=== PATIENT | male | born 1985 | race Caucasian/White ===

== ENCOUNTER 2018-09-14 10:35 | Emergency (ER) | payer BC ==
--- NOTE | 2018-09-14 11:04 | ED ---
HPI Chest Pain - HPI Summary HPI Summary: A 33 y/o male presents to [facility] with a chief complaint of two intermittent episodes of mid-sternal chest pain lasting for about 15 minutes the morning of 09/14/18. He claims that his first episode was while he was at work sitting down on his computer and his second episode was driving to the ED. He also c/o back pain. He claims that nothing aggravated his pain, but leaning forward alleviated his pain. He denies SOB, N/V or dizziness. He denies any CP currently , rates his pain as a 0/10, but he does claim that his chest currently feels tight. He is a former smoker and has a FHx of HTN due to his father. - History of Current Complaint Chief Complaint: EDChestWallPain Time Seen by Provider: 09/14/18 10:49 Onset/Duration: Started Minutes Ago, Still Present Timing: Intermittent, Lasting Minutes Initial Severity: Moderate Current Severity: Mild Pain Intensity: 0 Pain Scale Used: 0-10 Numeric Chest Pain Location: Mid Sternal Chest Pain Radiates: Yes Chest Pain Radiates To:: Back Character: Sharp/Stabbing Aggravating Factor(s): Nothing Alleviating Factor(s): Position - leaning forward Associated Signs and Symptoms: Positive: Back Pain. Negative: Dizziness, Shortness of Breath, Nausea, Vomiting - Allergy/Home Medications Allergies/Adverse Reactions: Allergies Allergy/AdvReac Type Severity Reaction Status Date / Time No Known Allergies Allergy Verified 09/14/18 12:14 Home Medications: Home Medications NK [No Home Medications Reported] 09/14/18 [History Confirmed 09/14/18] PMH/Surg Hx/FS Hx/Imm Hx Endocrine/Hematology History: Denies: Hx Diabetes Cardiovascular History: Denies: Hx Atrial Fibrillation - Surgical History Surgery Procedure, Year, and Place: TONSILECTOMY. SEPTOPLASTY Infectious Disease History: No Infectious Disease History: Denies: Traveled Outside the [place] in Last 30 Days - Family History Known Family History: Positive: Hypertension - father - Social History Alcohol Use: Occasionally Substance Use Type: Reports: None Hx Tobacco Use: Yes Smoking Status (MU): Former Smoker Review of Systems Negative: Fever Positive: Chest Pain Negative: Shortness Of Breath Negative: Vomiting, Nausea Positive: Myalgia - back pain Neurological: Negative - dizziness All Other Systems Reviewed And Are Negative: Yes Physical Exam - Summary Physical Exam Summary: Appearance: The patient is well-nourished in no acute distress and in no acute pain. Skin: The skin is warm and dry and skin color reflects adequate perfusion. HEENT: The head is normocephalic and atraumatic. The pupils are equal and reactive. The conjunctivae are clear and without drainage. Nares are patent and without drainage. Mouth reveals moist mucous membranes and the throat is without erythema and exudate. The external ears are intact. The ear canals are patent and without drainage. The tympanic membranes are intact. Neck: The neck is supple with full range of motion and non-tender. There are no carotid bruits. There is no neck vein distension. Respiratory: Chest is non-tender. Lungs are clear to auscultation and breath sounds are symmetrical and equal. Cardiovascular: Heart is regular rate and rhythm. There is no murmur or rub auscultated. There is no peripheral edema and pulses are symmetrical and equal. Abdomen: The abdomen is soft and non-tender. There are normal bowel sounds heard in all four quadrants and there is no organomegaly palpated. Musculoskeletal: There is no back tenderness noted. Extremities are non-tender with full range of motion. There is good capillary refill. There is no peripheral edema or calf tenderness elicited. Neurological: Patient is alert and oriented to person, place and time. The patient has symmetrical motor strength in all four extremities. Cranial nerves are grossly intact. Deep tendon reflexes are symmetrical and equal in all four extremities. Psychiatric: The patient has an appropriate affect and does not exhibit any anxiety or depression. Triage Information Reviewed: Yes Vital Signs On Initial Exam: Initial Vitals Temp Pulse Resp BP Pulse Ox 98.5 F 74 18 152/94 100 09/14/18 10:42 09/14/18 10:42 09/14/18 10:42 09/14/18 10:42 09/14/18 10:42 Vital Signs Reviewed: Yes Diagnostics - Vital Signs Vital Signs Temp Pulse Resp BP Pulse Ox 09/14/18 10:42 98.5 F 74 18 152/94 100 - Laboratory Result Diagrams: 09/14/18 11:07 09/14/18 11:07 Lab Statement: Any lab studies that have been ordered have been reviewed, and results considered in the medical decision making process. - Radiology CXR Radiology Interpretation Completed By: Radiologist Summary of Radiographic Findings: NO ACTIVE CARDIOPULMONARY DISEASE. ED provider has reviewed this imaging report. - EKG 10:51 Cardiac Rate: NL - 72 bpm EKG Rhythm: Sinus Rhythm ST Segment: Normal Ectopy: None Summary of EKG Findings: Normal sinus rhythm at 72 bpm, normal ST, no ectopy, no STEMI Re-Evaluation - Re-Evaluation First Eval Re-Evaluation Time: 12:23 Change: Improved Comment: Patient reports that he is pain free. Second Eval Re-Evaluation Time: 14:47 Change: Improved Comment: Patient is ready for discharge. Chest Pain Course/Dx - Course Course Of Treatment: Mr. Godwin presented to the emergency department with an atypical chest pain into the back. It was resolving by the time he got to the emergency department and he was nontoxic in appearance with stable vital signs. He was kept on the monitor here while an EKG and labs were obtained as well as chest x-ray. These were all normal including a delayed troponin and a d- dimer. I don't think anything dangerous is happening and the likelihood of a dissection is very low given that his pain has improved completely on its own and his workup was negative so far. I recommended follow-up with his PCP. - Diagnoses Provider Diagnoses: Chest pain Discharge - Sign-Out/Discharge Documenting (check all that apply): Patient Departure - DC - Discharge Plan Condition: Stable Disposition: HOME Referrals: Aydin Ferris MD [Primary Care Provider] - (2-3 days) Additional Instructions: Return to the ED if you experience any new or worsening symptoms. - Billing Disposition and Condition Condition: STABLE Disposition: Home - Attestation Statements Document Initiated by Mynor: Yes Documenting Scribe: Edy Oglesby Provider For Whom Mynor is Documenting (Include Credential): Kei Castro MD Scribe Attestation: I, Edy Oglesby, scribed for Kei Castro MD on 09/14/18 at 1453. Scribe Documentation Reviewed: Yes Provider Attestation: The documentation as recorded by the Edy owen accurately reflects the service I personally performed and the decisions made by me, Kei Castro MD Status of Scribe Document: Viewed
[2018-09-14 11:14] LABS: ABS Basophils 0 10^3/ul (0-0.2); ABS Eosinophils 0.1 10^3/ul (0-0.6); ABS Lymphocytes 2.3 10^3/ul (1.0-4.8); ABS Monocytes 0.4 10^3/ul (0-0.8); ABS Neutrophils 1.8 10^3/ul (1.5-7.7); ABS Nucleated RBC 0 10^3/ul; Eosinophil % 1.7 %; Hematocrit 49 % (42-52); Lymphocyte % 49.4 %; Mean Corpuscular HGB Conc 35 g/dl (31-36); Mean Corpuscular Hemoglobin 30 pg (27-31); Mean Corpuscular Volume 86 fL (80-94); Mean Platelet Volume 8.6 fL (7.4-10.4); Nucleated Red Blood Cells % 0.1; Platelet Count 203 10^3/ul (150-450); Red Blood Count 5.69 10^6/ul (4.00-5.40); Red Cell Distribution Width 13 % (10.5-15); White Blood Count 4.7 10^3/ul (3.5-10.8)
[2018-09-14 11:31] LABS: Albumin 4.3 g/dL (3.2-5.2); Albumin/Globulin Ratio 1.4 (1-3); BUN/Creatinine Ratio 12.7 (8-20); Calcium 9.8 mg/dL (8.6-10.3); EGFR Non-African American 114.4 (>60); Potassium 3.9 mmol/L (3.5-5.0); Total Bilirubin 0.8 mg/dL (0.2-1.0); Total Protein 7.3 g/dL (6.4-8.9)
[2018-09-14 14:54] VITALS: BP 140/85
== END 2018-09-14 14:54 | disposition home or self-care (01) ==
LOC: ED 10:35
DX: R07.89 Other chest pain (principal); M54.9 Dorsalgia, unspecified; Z87.891 Personal history of nicotine dependence
CPT/HCPCS: 36415; 71046; 80053; 83605; 84484; 85025; 85379; 93005; 99282

== ENCOUNTER 2018-11-27 16:53 | Emergency (ER) | payer BC ==
[2018-11-27 17:25] VITALS: BP 156/94
--- NOTE | 2018-11-27 17:39 | UC ---
Abdominal Pain Male HPI - HPI Summary HPI Summary: 33-year-old male comes in with a chief complaint of intermittent right upper quadrant abdominal pain. Started last evening. The pain lasts for couple of seconds and goes away. Its moderate when he has the pain. Sometimes it radiates to his right flank shoulder blade area. No fevers or chills. He has been able eat and drink. Eating and drinking does not seem to make it worse or better. He has had smaller amounts of stool recently. Does wonder if he might be constipated. No lower abdominal pain. No vomiting. No prior abdominal surgeries. Normal urination. - History of Current Complaint Chief Complaint: UCAbdominalPain Stated Complaint: ABD PAIN Time Seen by Provider: 11/27/18 17:09 Pain Intensity: 8 - Allergies/Home Medications Allergies/Adverse Reactions: Allergies Allergy/AdvReac Type Severity Reaction Status Date / Time No Known Allergies Allergy Verified 11/27/18 17:20 PMH/Surg Hx/FS Hx/Imm Hx Previously Healthy: Yes - Surgical History Surgical History: Yes Surgery Procedure, Year, and Place: TONSILLECTOMY. SEPTOPLASTY. LEFT MENISCUS REPAIR - Family History Known Family History: Positive: Hypertension - father - Social History Alcohol Use: Occasionally Substance Use Type: None Smoking Status (MU): Former Smoker Review of Systems All Other Systems Reviewed And Are Negative: Yes Constitutional: Positive: Negative Skin: Positive: Negative Eyes: Positive: Negative ENT: Positive: Negative Respiratory: Positive: Negative Cardiovascular: Positive: Negative Gastrointestinal: Positive: Abdominal Pain Genitourinary: Positive: Negative. Negative: Dysuria, Hematuria, Frequency, Urgency Motor: Positive: Negative Neurovascular: Positive: Negative Musculoskeletal: Positive: Negative Neurological: Positive: Negative Psychological: Positive: Negative Is Patient Immunocompromised?: No Physical Exam Triage Information Reviewed: Yes Appearance: Well-Appearing, No Pain Distress, Well-Nourished Vital Signs: Initial Vital Signs Temp 97.9 F 11/27/18 17:13 Pulse 99 11/27/18 17:13 Resp 16 11/27/18 17:13 BP 156/94 11/27/18 17:13 Pulse Ox 95 11/27/18 17:13 Vital Signs Reviewed: Yes Eye Exam: Normal Eyes: Positive: Conjunctiva Clear Neck exam: Normal Neck: Positive: Supple Respiratory: Positive: Lungs clear, Normal breath sounds, No respiratory distress Cardiovascular: Positive: RRR Abdomen Description: Positive: Nontender, Soft. Negative: CVA Tenderness (R), CVA Tenderness (L), Distended, Guarding Bowel Sounds: Positive: Present Musculoskeletal Exam: Normal Musculoskeletal: Positive: Strength Intact, ROM Intact Neurological Exam: Normal Neurological: Positive: Alert, Muscle Tone Normal Psychological Exam: Normal Psychological: Positive: Age Appropriate Behavior Skin Exam: Normal Abd Pain Male Course/Dx - Course Course Of Treatment: Patient Name: FISH SHANNON Medical Record#: [id number] Ordering Physician: Travis Kramer MD Acct.#: [id number] : 1985 Age: 33 Sex: M Location: [facility] Exam Date: 11/27/18 173 ADM Status: REG ER Order Information: CT ABD/PEL W/O Accession Number: [id number] CPT: 52666 CLINICAL HISTORY: RUQ PAIN COMPARISON: None relevant available at the time of dictation. TECHNIQUE: Multiple contiguous axial CT scans were obtained of the abdomen and pelvis, without intravenous contrast enhancement. Coronal and sagittal multiplanar reformations are submitted for review. Oral contrast was not administered. FINDINGS: Evaluation is limited due to the lack of intravenous contrast. This limits evaluation of the solid organs and vasculature. LUNG BASES: The lung bases are clear. LIVER: The liver is diffusely low in attenuation compared to the spleen. There are no focal hepatic parenchymal masses. The liver measures 23 cm in long axis. BILE DUCTS: There is no intrahepatic or extrahepatic biliary dilatation. GALLBLADDER: The gallbladder is normal, without pericholecystic inflammatory change. PANCREAS: The pancreas is normal, without mass or ductal dilatation. SPLEEN: Normal in size and appearance. UPPER GI TRACT: Evaluation of the gastrointestinal tract is limited by incomplete gastric distention. The upper GI tract is unremarkable. SMALL BOWEL AND MESENTERY: The small bowel is normal in contour, course, and caliber. There is no obstruction or dilatation. COLON: The colon is normal in contour, course, caliber. There is no pericolonic inflammatory change. There is a tubular, vermiform, hollow viscus that is blind ending, and originates from the cecum, consistent with a normal appendix. There is no periappendiceal inflammatory change. This is best seen on axial images 74 through 77. ADRENALS: Normal bilaterally. KIDNEYS: The kidneys are normal in shape, size, contour, and axis. There is no hydronephrosis or nephrolithiasis. BLADDER: The bladder is smooth in contour. PELVIC ORGANS: The prostate gland is normal. The seminal vesicles are symmetric. AORTA: The aorta is normal. IVC: Unremarkable LYMPH NODES: There is no lymphadenopathy by size criteria. ABDOMINAL WALL: There is no evidence for abdominal wall hernia. BONES AND SOFT TISSUES: Unremarkable OTHER: None IMPRESSION: HEPATOMEGALY WITH FATTY INFILTRATION OF THE LIVER. <Electronically signed by Fernando Simeon MD in OV> 11/27/18 180 EXAM: US Abdomen Limited, Right Upper Quadrant EXAM DATE/TIME: 11/27/2018 6:17 PM CLINICAL HISTORY: 33 years old, male; Pain; Abdominal pain; Tenderness; Right upper quadrant (ruq); Additional info: Ruq pain TECHNIQUE: Imaging protocol: Real-time ultrasound of the abdomen with image documentation. Examination was focused on the right upper quadrant. COMPARISON: A/P WO CT ABD/PEL W/O 11/27/2018 5:54 PM FINDINGS: Liver: The liver is diffusely echogenic consistent with fatty infiltration. No intrahepatic biliary dilatation. The posterior aspect of the liver is incompletely visualized due to shadowing. Gallbladder: Unremarkable. No shadowing gallstones. No gallbladder wall thickening. Common bile duct: The common bile duct measures 0.5 cm. Pancreas: Pancreas obscured by bowel gas. Right kidney: The right kidney measures 13.5 x 5.4 cm craniocaudad and AP. No obvious mass, shadowing stones, or hydronephrosis identified. IMPRESSION: 1. No acute findings. No shadowing gallstones. 2. Hepatic steatosis. The posterior aspect of the liver is incompletely visualized due to shadowing. To contact [facility] with a general question: [facility] - [phone] For direct physician to physician contact: Physician Hotline - [phone] [facility] ([facility] Facility ID #[id number]) End of Report Content Attending Doctor: Travis Kramer ([id number]) Harpsichord Maker: Chetna Houston ([id number]) Eligibility Examiner: Ana Laura SEPULVEDA (DERICK) Report Date: 11/27/2018 17:37:00 Report Status: Final Begin of Report Content Patient Name: FISH SHANNON Medical Record#: [id number] Ordering Physician: Travis Kramer MD Acct.#: [id number] : 1985 Age: 33 Sex: M Location: [facility] Exam Date: 11/27/181736 ADM Status: REG ER Order Information: US GALL BLADDER Accession Number: [id number] CPT: 85853 EXAM: US Abdomen Limited, Right Upper Quadrant EXAM DATE/TIME: 11/27/2018 6:17 PM CLINICAL HISTORY: 33 years old, male; Pain; Abdominal pain; Tenderness; Right upper quadrant (ruq); Additional info: Ruq pain TECHNIQUE: Imaging protocol: Real-time ultrasound of the abdomen with image documentation. Examination was focused on the right upper quadrant. COMPARISON: A/P WO CT ABD/PEL W/O 11/27/2018 5:54 PM FINDINGS: Liver: The liver is diffusely echogenic consistent with fatty infiltration. No intrahepatic biliary dilatation. The posterior aspect of the liver is incompletely visualized due to shadowing. Gallbladder: Unremarkable. No shadowing gallstones. No gallbladder wall thickening. Common bile duct: The common bile duct measures 0.5 cm. Pancreas: Pancreas obscured by bowel gas. Right kidney: The right kidney measures 13.5 x 5.4 cm craniocaudad and AP. No obvious mass, shadowing stones, or hydronephrosis identified. IMPRESSION: 1. No acute findings. No shadowing gallstones. 2. Hepatic steatosis. The posterior aspect of the liver is incompletely visualized due to shadowing. To contact [facility] with a general question: [facility] - [phone] For direct physician to physician contact: Physician Hotline - [phone] [facility] ([facility] Facility ID #[id number]) <Electronically signed by Chetna Houston MD in OV> 11/27/18 [address] and ultrasound report with the patient. There is a fatty liver however there is no other findings. Was a trace of blood in the urine. At this time there is no obvious cause for the pain. The pain is intermittent. He has been able eat and drink no fevers. CBC CMP and lipase and hepatitis screen are all pending. Plan is to start a PPI and also potentially over-the- counter medications for constipation. As long as the patient completely improves he can follow-up his primary care doctor. We discussed that if anything gets worse with fevers worse pain or any other concerns she needs to go the emergency department for further evaluation and care. - Differential Dx/Clinical Impression Provider Diagnosis: Right upper quadrant abdominal pain Discharge - Sign-Out/Discharge Documenting (check all that apply): Patient Departure All imaging exams completed and their final reports reviewed: Yes - Discharge Plan Condition: Stable Disposition: HOME Prescriptions: Omeprazole 20 mg PO BID #30 capsule. Patient Education Materials: Acute Abdominal Pain (DC) Referrals: Aydin Ferris MD [Primary Care Provider] - Additional Instructions: FOLLOW UP WITH YOUR DOCTOR IF NOT COMPLETELY IMPROVED. GO TO THE EMERGENCY DEPARTMENT IF YOUR CONDITION WORSENS; PAIN, FEVER, YOU FEEL ILL OR ANY QUESTIONS OR CONCERNS. - Billing Disposition and Condition Condition: STABLE Disposition: Home
[2018-11-28 10:09] LABS: ABS Basophils 0 10^3/ul (0-0.2); ABS Eosinophils 0.1 10^3/ul (0-0.6); ABS Monocytes 0.7 10^3/ul (0-0.8); ABS Neutrophils 3.4 10^3/ul (1.5-7.7); ABS Nucleated RBC 0 10^3/ul; Eosinophil % 1.9 %; Hematocrit 51 % (36-46); Hemoglobin 17.5 g/dL (14.0-18.0); Lymphocyte % 41.9 %; Mean Corpuscular HGB Conc 35 g/dL (31-36); Mean Corpuscular Hemoglobin 30 pg (27-31); Mean Corpuscular Volume 87 fL (80-94); Mean Platelet Volume 9.3 fL (7.4-10.4); Nucleated Red Blood Cells % 0.2; Platelet Count 201 10^3/uL (150-450); Red Blood Count 5.83 10^6 /uL (4.18-5.48); Red Cell Distribution Width 13 % (10.5-15); White Blood Count 7.2 10^3/uL (3.5-10.8)
[2018-11-28 10:14] LABS: Albumin 4.6 g/dL (3.2-5.2); Potassium 4.1 mmol/L (3.5-5.0); Total Bilirubin 0.6 mg/dL (0.2-1.0)
[2018-11-28 10:20] LABS: Albumin/Globulin Ratio 1.8 (1-3); BUN/Creatinine Ratio 17.7 (8-20); EGFR African American 138.4 (>60); EGFR Non-African American 114.4 (>60); Globulin 2.5 g/dL (2-4); Total Protein 7.1 g/dL (6.4-8.9)
[2018-11-28 13:34] LABS: Hepatitis C Antibody Low Reactive (Nonreactive)
--- NOTE | 2018-11-29 07:11 | UC ---
- Progress Note Progress Note: labs reviewed: Hepatitis B and hepatitis A And hepatitis C antibody pending at this time He has low reactive results for hep C Await final results at this time No change in plan Course/Dx - Diagnoses Provider Diagnoses: Right upper quadrant abdominal pain Discharge - Sign-Out/Discharge Documenting (check all that apply): Post-Discharge Follow Up All imaging exams completed and their final reports reviewed: Yes - Discharge Plan Condition: Stable Disposition: HOME Prescriptions: Omeprazole 20 mg PO BID #30 capsule.dr Patient Education Materials: Acute Abdominal Pain (DC) Referrals: Aydin Ferris MD [Primary Care Provider] - Additional Instructions: FOLLOW UP WITH YOUR DOCTOR IF NOT COMPLETELY IMPROVED. GO TO THE EMERGENCY DEPARTMENT IF YOUR CONDITION WORSENS; PAIN, FEVER, YOU FEEL ILL OR ANY QUESTIONS OR CONCERNS. - Billing Disposition and Condition Condition: STABLE Disposition: Home
[2018-11-30 11:46] LABS: Hepatitis B Surface Antigen Nonreactive (Nonreactive)
--- NOTE | 2018-11-30 16:22 | UC ---
- Progress Note Progress Note: 11/30/2018 Hepatitis B S antigen: non reactive, Hep B Core IGM: non reactive. Pt w/o immunity for Hep B Hep A AB IGM: non reactive Hep C Ab, HCV index; 8.4, low reactive, results aretha indeterminate. Still pending final reports for additional reflexed testing No change Emili Muller PA-C Course/Dx - Diagnoses Provider Diagnoses: Right upper quadrant abdominal pain Discharge - Sign-Out/Discharge Documenting (check all that apply): Post-Discharge Follow Up All imaging exams completed and their final reports reviewed: Yes - Discharge Plan Condition: Stable Disposition: HOME Prescriptions: Omeprazole 20 mg PO BID #30 capsule.dr Patient Education Materials: Acute Abdominal Pain (DC) Referrals: Aydin Ferris MD [Primary Care Provider] - Additional Instructions: FOLLOW UP WITH YOUR DOCTOR IF NOT COMPLETELY IMPROVED. GO TO THE EMERGENCY DEPARTMENT IF YOUR CONDITION WORSENS; PAIN, FEVER, YOU FEEL ILL OR ANY QUESTIONS OR CONCERNS. - Billing Disposition and Condition Condition: STABLE Disposition: Home
== END 2018-11-27 19:05 | disposition home or self-care (01) ==
LOC: UCEAST 16:53
DX: R10.11 Right upper quadrant pain (principal); K76.0 Fatty (change of) liver, not elsewhere classified; Z87.891 Personal history of nicotine dependence
CPT/HCPCS: 36415; 74176; 76705; 80053; 80074; 81003; 83690; 85025; 87522; 99212; G0463

== ENCOUNTER 2018-12-02 11:45 | Emergency (ER) | payer BC ==
[2018-12-02 12:58] LABS: ABS Basophils 0.1 10^3/ul (0-0.2); ABS Eosinophils 0.1 10^3/ul (0-0.6); ABS Lymphocytes 2.6 10^3/ul (1.0-4.8); ABS Monocytes 0.6 10^3/ul (0-0.8); ABS Neutrophils 2.8 10^3/ul (1.5-7.7); ABS Nucleated RBC 0 10^3/ul; Hematocrit 49 % (36-46); Hemoglobin 17.1 g/dL (14.0-18.0); Lymphocyte % 42.3 %; Mean Corpuscular HGB Conc 35 g/dL (31-36); Mean Corpuscular Hemoglobin 30 pg (27-31); Mean Corpuscular Volume 86 fL (80-94); Mean Platelet Volume 8.7 fL (7.4-10.4); Nucleated Red Blood Cells % 0.4; Platelet Count 202 10^3/uL (150-450); Red Blood Count 5.74 10^6 /uL (4.18-5.48); Red Cell Distribution Width 13 % (10.5-15); White Blood Count 6.1 10^3/uL (3.5-10.8)
--- NOTE | 2018-12-02 13:01 | ED ---
Upper Extremity Pain - HPI Summary HPI Summary: Patient is a 33yo M presenting to the ED from with sharp shooting pain just inferior to the shoulder and running to the elbow joint. He states this is been intermittent x 2 days he endorses this as a shooting pain and not aching or stabbing. He denies any known trauma. He states he was seen in the ED approximately 1 week ago and had a blood pressure cuff which was tight but denies any other trauma. He states upon movement, the pain is shooting. Denies any numbness or tingling in the ipsilateral hand. Endorses numbness sensation directly over the posterior portion of the upper arm. Denies any erythema or warmth or ecchymosis to the arm. Denies any neck pain. Pulses +2 intact bilaterally. Patient was sent here from [facility] for probable ST elevations in the V5 and V6 leads compared with previous visit 3 months ago. EKG is in normal sinus with a rate of 69. Patient denies any CP or SOB. He was sent here for rule out ACS. Spoke with MADELIN Granados at prior to patient arrival. - History of Current Complaint Chief Complaint: EDChestPainROMI Stated Complaint: ARM PAIN , COMING FROM CC Time Seen by Provider: 12/02/18 11:46 Hx Obtained From: Patient Mechanism Of Injury: Direct Blow Onset/Duration: Started Hours Ago Timing: Constant Severity Initially: Moderate Severity Currently: Moderate Pain Location: Arm Character: Aching Aggravating Factor(s): Movement Alleviating Factor(s): Nothing Associated Signs & Symptoms: Positive: Negative Related History: Dominant Hand Right - Risk Factors Non-Orthopedic Risk Factor: Negative DVT Risk Factors: Negative Septic Arthritis Risk Factor: Negative Compartment Syndrome Risk Factors: Pain, Paresthesias - Allergies/Home Medications Allergies/Adverse Reactions: Allergies Allergy/AdvReac Type Severity Reaction Status Date / Time No Known Allergies Allergy Verified 12/02/18 09:08 PMH/Surg Hx/FS Hx/Imm Hx Previously Healthy: Yes Endocrine/Hematology History: Denies: Hx Diabetes Cardiovascular History: Denies: Hx Atrial Fibrillation, Hx Hypertension - Surgical History Surgery Procedure, Year, and Place: TONSILLECTOMY. SEPTOPLASTY. LEFT MENISCUS REPAIR - Immunization History Hx Pertussis Vaccination: No Immunizations Up to Date: Yes Infectious Disease History: No Infectious Disease History: Denies: Traveled Outside the [place] in Last 30 Days - Family History Known Family History: Positive: Hypertension - father - Social History Occupation: Employed Full-time Lives: With Family Alcohol Use: Occasionally Hx Substance Use: No Substance Use Type: Reports: None Hx Tobacco Use: Yes Smoking Status (MU): Former Smoker Review of Systems Constitutional: Negative Negative: Fever, Chills, Fatigue, Skin Diaphoresis Negative: Palpitations, Chest Pain Negative: Shortness Of Breath, Cough Genitourinary: Negative Positive: no symptoms reported, see HPI Neurological: Other - sharp shooting pain intermittent throughout the L upper posterior arm Positive: Paresthesia, Numbness Psychological: Normal All Other Systems Reviewed And Are Negative: Yes Physical Exam Triage Information Reviewed: Yes Vital Signs On Initial Exam: Initial Vitals Temp Pulse Resp BP Pulse Ox 97.9 F 72 18 151/97 96 12/02/18 11:47 12/02/18 11:47 12/02/18 11:47 12/02/18 11:47 12/02/18 11:47 Vital Signs Reviewed: Yes Appearance: Positive: Well-Appearing, Well-Nourished Skin: Positive: Warm, Skin Color Reflects Adequate Perfusion Head/Face: Positive: Normal Head/Face Inspection Eyes: Positive: EOMI, SHALA, Conjunctiva Clear Neck: Positive: Supple, No Lymphadenopathy Respiratory/Lung Sounds: Positive: Clear to Auscultation, Breath Sounds Present Cardiovascular: Positive: RRR, Pulses are Symmetrical in both Upper and Lower Extremities Musculoskeletal: Positive: Pain @ - sharp shooting pain intermittent throughout the L upper posterior arm Psychiatric: Positive: Affect/Mood Appropriate AVPU Assessment: Alert Diagnostics - Vital Signs Vital Signs Temp Pulse Resp BP Pulse Ox 12/02/18 11:47 97.9 F 72 18 151/97 96 - Laboratory Result Diagrams: 12/02/18 12:47 12/02/18 12:47 Lab Statement: Any lab studies that have been ordered have been reviewed, and results considered in the medical decision making process. Course/Dx - Course Course Of Treatment: Arrival in to the ED, EKG is obtained. EKG shows normal sinus rhythm, RSR in V1 and V2, ST elevation, probable normal early repolarization pattern. No STEMI is noted. Patient continues to deny any chest pressure. Since arrival, he denies any pain to the arm. However states when he moves it "just right" the pain is shooting. He is also endorsing some numbness over the area which is also intermittent. Labs obtained including a troponin. Patient will be given a steroid and encouraged ibuprofen for inflammation and nerve spasm relief. He is okay for discharge at this time. - Diagnoses Differential Diagnosis/HQI/PQRI: Positive: Other - Muscle strain, nerve pain Provider Diagnoses: Nerve pain Discharge - Sign-Out/Discharge Documenting (check all that apply): Patient Departure Patient Received Moderate/Deep Sedation with Procedure: No - Discharge Plan Condition: Stable Disposition: HOME Prescriptions: predniSONE TAB* [Deltasone TAB*] 50 mg PO DAILY #5 tab MDD 1 Patient Education Materials: Muscle Spasm (ED) Referrals: Aydin Ferris MD [Primary Care Provider] - Additional Instructions: Take ibuprofen 600mg three times daily Prednisone once daily x 5 days - Billing Disposition and Condition Condition: STABLE Disposition: Home
[2018-12-02 13:16] LABS: Albumin 4.4 g/dL (3.2-5.2); Albumin/Globulin Ratio 1.6 (1-3); BUN/Creatinine Ratio 17.8 (8-20); Calcium 9.8 mg/dL (8.6-10.3); EGFR African American 151.6 (>60); EGFR Non-African American 125.3 (>60); Globulin 2.8 g/dL (2-4); Total Bilirubin 0.9 mg/dL (0.2-1.0); Total Protein 7.2 g/dL (6.4-8.9); Troponin I 0.01 ng/mL (<0.04)
[2018-12-02 15:13] VITALS: BP 151/77
== END 2018-12-02 13:39 | disposition home or self-care (01) ==
LOC: ED 11:45
DX: M79.2 Neuralgia and neuritis, unspecified (principal)
CPT/HCPCS: 36415; 71046; 80053; 83605; 84484; 85025; 93005; 99282

== ENCOUNTER 2018-12-31 17:35 | Emergency (ER) | payer BC ==
--- OUTSIDE RECORDS SUMMARY | 2018-12-31 17:40 | XMS REPORT | Continuity of Care Document ---
:1985 External Reference #:[id number] Author Name Ursula Womack O.D. Address [address] [place] [address] Care Team Providers Name Role Phone Aydin Ferris M.D. Primary Care Physician Unavailable Payers Date Identification Numbers Payment Provider Subscriber Policy Number: [id number] [employer] Will Godwin PayID: [id number] [address] [place] [address] Advance Directives Description No Information Available Problems Active Problems Provider Date Essential hypertension Onset: Myopia Ursula Womack O.D. Onset: 12/08/2018 Regular astigmatism Ursula Womack O.D. 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 ETOH Use Occasionally consumes alcohol Tobacco Use Start: Unknown Patient has never smoked Smoking Status Reviewed: 12/08/18 Patient has never smoked Allergies, Adverse Reactions, Alerts Description No Known Drug Allergies Medications Active Medications SIG Qnty Indications Ordering Provider Date Lisinopril Take One Tablet Unknown 10mg Tablets By Mouth Every Day Immunizations Description No Information Available Vital Signs Description No Information Available Results Description No Information Available Procedures Description No Information Available Encounters Description No Information Available Plan of Treatment 12/08/2018 - Ursula oWmack O.D.H52.223 Regular astigmatism, bilateralComments: Astigmatism is a common vision condition that happens when a person's cornea is not symmetrical. Dr. Womack has given you a prescription to correct for this.Follow up:2 YEARS You can expect to have your eyes dilated at your next visit. If Dr. Womack orders any additional testing, it may require extra time. We recommend that you bring sunglasses, as dilation drops often make you light sensitive until they wear off. We always recommend you bring someone to drive youhome if you are uncomfortable driving with your eyes dilated. If you have any questions before your next visit, feel free to call our office at [phone].H72.13 Myopia, bilateralComments:Smoking can increase the risk of developing or worsening any eye related disease, as well as affect your overall health. If you are a smoker, we strongly recommend that you quit.If you are not a smoker, we strongly recommend that you do not start. You have Myopia, or near sightedness. I have given you a prescription for glasses.
--- OUTSIDE RECORDS SUMMARY | 2018-12-31 17:40 | XMS REPORT | Continuity of Care Document ---
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 Aydin Ferris MD Primary Care Physician Unavailable Payers Date Identification Numbers Payment Provider Subscriber Effective: 2016 Policy Number: [id number] /BS Of [employer] Group Number: [id number] [address] [address] PayID: [id number] [place] [address] Advance Directives Description No Information Available Problems Description No Information Family History Date Family Member(s) Observation Comments Father 50 Father No Current Problems Mother 50 Mother No Current Problems First Brother 23 First Brother No Current Problems First Sister 23 First Sister No Current Problems Second Sister 23 Second Sister No Current Problems Social History Type Date Description Comments Sex Unknown Marital Status . ETOH Use Currently consumes alcohol Tobacco Use Start: Unknown End: Unknown Patient is a former smoker Smoking Status Reviewed: 03/20/18 Patient is a former smoker Allergies, Adverse Reactions, Alerts Description No Known Drug Allergies Medications Active Medications SIG Qnty Indications Ordering Provider Date Lisinopril 1 by mouth 30tabs I10 Aydin Poole 12/03/2018 10mg Tablets every day MD [place] Prednisone take one by Unknown 50mg Tablets mouth daily for 5 days History Medications No Active Medications Unknown 03/20/2018 - 12/03/2018 Immunizations Description No Information Available Vital Signs Date Vital Result Comment 12/03/2018 3:35pm BP Systolic 158 mmHg BP Diastolic 88 mmHg Heart Rate 80 /min Body Temperature 98.8 F Respiratory Rate 18 /min Height 79 inches 6'7" Weight 341.00 lb BMI (Body Mass Index) 38.4 kg/m2 07/16/2018 3:27pm BP Systolic 140 mmHg BP Diastolic 84 mmHg Heart Rate 68 /min Body Temperature 98.1 F Respiratory Rate 18 /min Weight 348.00 lb 03/20/2018 10:27am BP Systolic 122 mmHg BP Diastolic 84 mmHg Heart Rate 64 /min Body Temperature 97.3 F Respiratory Rate 16 /min Height 79 inches 6'7" Weight 332.00 lb BMI (Body Mass Index) 37.4 kg/m2 Results Test Date Facility Test Result H/L Range Note Laboratory test finding 12/02/2018 [facility] Lactic Acid 0.7 mmol/L N 0.5-2.0 1 Troponin I 0.01 ng/mL <0.04 2 Comp Metabolic Panel 12/02/2018 [facility] Sodium 137 mmol/L N 135-145 Potassium 4.0 mmol/L N 3.5-5.0 Chloride 106 mmol/L N 101-111 Co2 Carbon Dioxide 24 mmol/L N 22-32 Anion Gap 7 mmol/L N 2-11 Glucose 91 mg/dL N 70-100 Blood Urea Nitrogen 13 mg/dL N 6-24 Creatinine 0.73 mg/dL N 0.67-1.17 BUN/Creatinine Ratio 17.8 N 8-20 Calcium 9.8 mg/dL N 8.6-10.3 Total Protein 7.2 g/dL N 6.4-8.9 Albumin 4.4 g/dL N 3.2-5.2 Globulin 2.8 g/dL N 2-4 Albumin/Globulin Ratio 1.6 N 1-3 Total Bilirubin 0.90 mg/dL N 0.2-1.0 Alkaline Phosphatase 46 U/L N 34-104 Alt 50 U/L N 7-52 Ast 30 U/L N 13-39 Egfr Non- 125.3 >60 Egfr 151.6 >60 3 CBC Auto Diff 12/02/2018 [facility] White Blood Count 6.1 10^3/uL N 3.5-10.8 Red Blood Count 5.74 10^6/uL High 4.18-5.48 Hemoglobin 17.1 g/dL N 14.0-18.0 Hematocrit 49 % High 36-46 Mean Corpuscular Volume 86 fL N 80-94 Mean Corpuscular Hemoglobin 30 pg N 27-31 Mean Corpuscular HGB Conc 35 g/dL N 31-36 Red Cell Distribution Width 13 % N 10.5-15 Platelet Count 202 10^3/uL N 150-450 Mean Platelet Volume 8.7 fL N 7.4-10.4 Abs Neutrophils 2.8 10^3/uL N 1.5-7.7 Abs Lymphocytes 2.6 10^3/uL N 1.0-4.8 Abs Monocytes 0.6 10^3/uL N 0-0.8 Abs Eosinophils 0.1 10^3/uL N 0-0.6 Abs Basophils 0.1 10^3/uL N 0-0.2 Abs Nucleated RBC 0 10^3/uL Granulocyte % 45.6 % Lymphocyte % 42.3 % Monocyte % 9.1 % Eosinophil % 2.0 % Basophil % 1.0 % Nucleated Red Blood Cells % 0.4 CBC Auto Diff 11/27/2018 [facility] White Blood Count 7.2 10^3/uL N 3.5-10.8 Red Blood Count 5.83 10^6/uL High 4.18-5.48 Hemoglobin 17.5 g/dL N 14.0-18.0 Hematocrit 51 % High 36-46 Mean Corpuscular Volume 87 fL N 80-94 Mean Corpuscular Hemoglobin 30 pg N 27-31 Mean Corpuscular HGB Conc 35 g/dL N 31-36 Red Cell Distribution Width 13 % N 10.5-15 Platelet Count 201 10^3/uL N 150-450 Mean Platelet Volume 9.3 fL N 7.4-10.4 Abs Neutrophils 3.4 10^3/uL N 1.5-7.7 Abs Lymphocytes 3.0 10^3/uL N 1.0-4.8 Abs Monocytes 0.7 10^3/uL N 0-0.8 Abs Eosinophils 0.1 10^3/uL N 0-0.6 Abs Basophils 0 10^3/uL N 0-0.2 Abs Nucleated RBC 0 10^3/uL Granulocyte % 46.6 % Lymphocyte % 41.9 % Monocyte % 9.1 % Eosinophil % 1.9 % Basophil % 0.5 % Nucleated Red Blood Cells % 0.2 Comp Metabolic Panel 11/27/2018 [facility] Sodium 139 mmol/L N 135-145 Potassium 4.1 mmol/L N 3.5-5.0 Chloride 106 mmol/L N 101-111 Co2 Carbon Dioxide 24 mmol/L N 22-32 Anion Gap 9 mmol/L N 2-11 Calcium 10.0 mg/dL N 8.6-10.3 Albumin 4.6 g/dL N 3.2-5.2 Total Bilirubin 0.60 mg/dL N 0.2-1.0 Glucose 84 mg/dL N 70-100 Blood Urea Nitrogen 14 mg/dL N 6-24 Creatinine 0.79 mg/dL N 0.67-1.17 BUN/Creatinine Ratio 17.7 N 8-20 Total Protein 7.1 g/dL N 6.4-8.9 Globulin 2.5 g/dL N 2-4 Albumin/Globulin Ratio 1.8 N 1-3 Alkaline Phosphatase 51 U/L N 34-104 Alt 57 U/L High 7-52 Ast 32 U/L N 13-39 Egfr Non- 114.4 >60 Egfr 138.4 >60 4 Laboratory test finding 11/27/2018 [facility] Lipase 19 U/L N 11.0-82.0 5 Hepatitis Acute Panel 11/27/2018 [facility] HCV Index 8.4 Index Hepatitis C Antibody Low Reactive Abnormal Nonreactive 6 Hepatitis B Surface Antigen Nonreactive Nonreactive Hepatitis B Core IgM Nonreactive Nonreactive Hepatitis A AB IgM Nonreactive Nonreactive Laboratory test 11/27/2018 [facility] Hepatitis C Rna Undetected IU/mL Undetected 7 finding Quant Poc Urinalysis 11/27/2018 [facility] Poc Glucose, Urine Negative Negative Poc Bilirubin, Urine Negative Negative Poc Ketone, Urine Negative Negative Poc Specific [place], Urine >=1.030 N 1.010-1.030 Poc Blood, Urine Trace-lysed Abnormal Negative Poc pH, Urine 5.5 N 5-9 Poc Protein, Urine 2+ Abnormal Negative Poc Urobilinogen, Urine 0.2 Negative Poc Nitrite, Urine Negative Negative Poc Leukocytes, Urine Negative Negative Poc Color, Urine Dark yellow Poc Clarity, Urine Clear 8 Laboratory test finding 09/14/2018 [facility] Troponin I 0.00 ng/mL <0.04 9 D Dimer Quantitative < 200 ng/mL N Less Than 230 10 Comp Metabolic Panel 09/14/2018 [facility] Sodium 136 mmol/L N 135-145 Potassium 3.9 mmol/L N 3.5-5.0 Chloride 106 mmol/L N 101-111 Co2 Carbon Dioxide 23 mmol/L N 22-32 Anion Gap 7 mmol/L N 2-11 Glucose 101 mg/dL High 70-100 Blood Urea Nitrogen 10 mg/dL N 6-24 Creatinine 0.79 mg/dL N 0.67-1.17 BUN/Creatinine Ratio 12.7 N 8-20 Calcium 9.8 mg/dL N 8.6-10.3 Total Protein 7.3 g/dL N 6.4-8.9 Albumin 4.3 g/dL N 3.2-5.2 Globulin 3.0 g/dL N 2-4 Albumin/Globulin Ratio 1.4 N 1-3 Total Bilirubin 0.80 mg/dL N 0.2-1.0 Alkaline Phosphatase 46 U/L N 34-104 Alt 54 U/L High 7-52 Ast 33 U/L N 13-39 Egfr Non- 114.4 >60 Egfr 138.4 >60 11 Laboratory test finding 09/14/2018 [facility] Lactic Acid 0.8 mmol/L N 0.5-2.0 12 CBC Auto Diff 09/14/2018 [facility] White Blood Count 4.7 10^3/uL N 3.5-10.8 Red Blood Count 5.69 10^6/uL High 4.00-5.40 Hemoglobin 17.0 g/dL N 14.0-18.0 Hematocrit 49 % N 42-52 Mean Corpuscular Volume 86 fL N 80-94 Mean Corpuscular Hemoglobin 30 pg N 27-31 Mean Corpuscular HGB Conc 35 g/dL N 31-36 Red Cell Distribution Width 13 % N 10.5-15 Platelet Count 203 10^3/uL N 150-450 Mean Platelet Volume 8.6 fL N 7.4-10.4 Abs Neutrophils 1.8 10^3/uL N 1.5-7.7 Abs Lymphocytes 2.3 10^3/uL N 1.0-4.8 Abs Monocytes 0.4 10^3/uL N 0-0.8 Abs Eosinophils 0.1 10^3/uL N 0-0.6 Abs Basophils 0 10^3/uL N 0-0.2 Abs Nucleated RBC 0 10^3/uL Granulocyte % 38.9 % Lymphocyte % 49.4 % Monocyte % 9.1 % Eosinophil % 1.7 % Basophil % 0.9 % Nucleated Red Blood Cells % 0.1 Laboratory test finding 09/14/2018 [facility] Troponin I 0.00 ng/mL <0.04 13 Comprehensive Metabolic 03/30/2018 [facility] Sodium 139 mEq/L 134- 149 Prof Potassium 4.3 mEq/L 3.6-5.5 Chloride 109 mEq/L 94-112 Carbon Dioxide 21 mEq/L 21-32 Glucose 96 mg/dL 70-105 BUN 12 mg/dL 6-26 Creatinine 0.9 mg/dL 0.6-1.4 BUN/Creat Ratio 13.3 CALC 8.0-36.0 Calcium 9.5 mg/dL 8.6-10.2 Total Protein 7.0 g/dL 6.4-8.3 Albumin 4.4 g/dL 3.8-5.5 Globulin 2.6 g/dL 2.0-4.8 A/G Ratio 1.7 CALC 0.6-2.3 Alk. Phosphatase 42 U/L 22-95 Alt (SGPT) 44 U/L High 7-35 Ast (Sgot) 24 U/L 5-34 Total Bilirubin 0.7 mg/dL 0.2-1.3 GFR Non- >60 ml/min/1.73m^ >=60 GFR >60 ml/min/1.73m^ >=60 Lipid Profile 03/30/2018 [facility] Cholesterol 125 mg/dL 120-200 Triglycerides 86 mg/dL 30-200 HDL Cholesterol 39 mg/dL 30-70 LDL (Calculated) 69 CALC 0-129 VLDL Cholesterol 17 mg/dL 0-50 HDL Risk Factor 3.2 CALC 0.0-4.4 CBC Electronic Fma 03/30/2018 [facility] WBC 7.5 x10^3/UL 4.0-10.0 RBC 5.62 x10^6/UL 3.93-6.00 HGB 16.7 g/dL 12.0-17.0 HCT 46 % 35-50 MCV 82.6 fL 80.0-95.0 MCH 29.7 pg 25.6-32.2 MCHC 36.0 g/dL 32.2-36.0 RDW-CV 12.4 % 11.6-14.4 PLT 198 x10^3/UL 163-400 MPV 10.1 fL 9.4-12.4 Zane# 3.63 x10^3/UL 1.56-6.13 Lymph# 2.82 x10^3/UL 1.18-3.74 [place]# 0.79 x10^3/UL 0.24-0.82 Eos # 0.3 x10^3/UL 0.0-0.5 Baso # 0.03 x10^3/UL 0.01-0.08 Zane% 48.2 % 34.0-70.0 Lymph % 37.5 % 20.0-52.0 [place]% 10.5 % 5.0-12.0 Eos% 3.3 % 0.7-7.0 Baso% 0.4 % 0.1-1.2 1 [facility] Severe Sepsis and Septic Shock Management Bundle Measure requires all lactic acids initially measuring >2.0 mmol/L be repeated. 2 Troponin-I testing on Plasma Separator Tubes (PST) has a known false positive rate of 0.20-0.40%. All positive troponins reflex immediate secondary confirmatory testing. 3 Because ethnic data is not always readily available, this report includes an eGFR for both -Americans and non- Americans. The National Kidney Disease Education Program (NKDEP) does not endorse the use of the MDRD equation for patients that are not between the ages of 18 and 70, are , have extremes of body size, muscle mass, or nutritional status, or are non- or non-. According to the National Kidney Foundation, irrespective of diagnosis, the stage of the disease is based on the level of kidney function: Stage Description GFR(mL/min/1.73 m(2)) 1 Kidney damage with normal or decreased GFR 90 2 Kidney damage with mild decrease in GFR 60-89 3 Moderate decrease in GFR 30-59 4 Severe decrease in GFR 15-29 5 Kidney failure <15 (or dialysis) 4 Because ethnic data is not always readily available, this report includes an eGFR for both -Americans and non- Americans. The National Kidney Disease Education Program (NKDEP) does not endorse the use of the MDRD equation for patients that are not between the ages of 18 and 70, are , have extremes of body size, muscle mass, or nutritional status, or are non- or non-. According to the National Kidney Foundation, irrespective of diagnosis, the stage of the disease is based on the level of kidney function: Stage Description GFR(mL/min/1.73 m(2)) 1 Kidney damage with normal or decreased GFR 90 2 Kidney damage with mild decrease in GFR 60-89 3 Moderate decrease in GFR 30-59 4 Severe decrease in GFR 15-29 5 Kidney failure <15 (or dialysis) 5 [id number] Low reactive results are indeterminate. This sample has been reflexed for additional testing. 7 Result in log IU/mL is Undetected. ADDITIONAL INFORMATION The quantification range of this assay is 15 to 100,000,000 IU/mL (1.18 log to 8.00 log IU/mL). Testing was performed using the stone HCV test ([employer] with the stone [employer]0 System. Test Performed by: [facility] [place] [address] [place] [address] 8 Pattern Grader Cutter: [id number] 9 Troponin-I testing on Plasma Separator Tubes (PST) has a known false positive rate of 0.20-0.40%. All positive troponins reflex immediate secondary confirmatory testing. 10 Please note: The following may produce a false positive D Dimer test: - Rheumatoid factor greater than 60 IU/ml - Plasma hemoglobin greater than 0.05 gm/dl - Bilirubin greater than 50 mg/dl - Lipids greater than 1000 mg/dl - FDP greater than 20 ug/ml 11 Because ethnic data is not always readily available, this report includes an eGFR for both -Americans and non- Americans. The National Kidney Disease Education Program (NKDEP) does not endorse the use of the MDRD equation for patients that are not between the ages of 18 and 70, are , have extremes of body size, muscle mass, or nutritional status, or are non- or non-. According to the National Kidney Foundation, irrespective of diagnosis, the stage of the disease is based on the level of kidney function: Stage Description GFR(mL/min/1.73 m(2)) 1 Kidney damage with normal or decreased GFR 90 2 Kidney damage with mild decrease in GFR 60-89 3 Moderate decrease in GFR 30-59 4 Severe decrease in GFR 15-29 5 Kidney failure <15 (or dialysis) 12 [facility] Severe Sepsis and Septic Shock Management Bundle Measure requires all lactic acids initially measuring >2.0 mmol/L be repeated. 13 Troponin-I testing on Plasma Separator Tubes (PST) has a known false positive rate of 0.20-0.40%. All positive troponins reflex immediate secondary confirmatory testing. Procedures Description No Information Available Encounters Type Date Location Provider Dx Diagnosis Office Visit 07/16/2018 Main Office Aydin Poole M25.511 Pain in right 3:10p MD [place] shoulder Office Visit 03/20/2018 Main Office Aydin Poole Z00.00 Encntr for general 10:10a MD [place] adult medical exam w/o abnormal findings Plan of Treatment 12/03/2018 - Aydin Ferris [id number] Essential (primary) hypertensionNew Medication:Lisinopril 10 mg - 1 by mouth every dayR07.89 Other chest painAllComments:Medication Management Patient Understands medications he's taking? Yes No Are there Barriersto Adherence? Yes No Has the patient been asked about herbal supplements and therapies, and OTC meds? Yes No
--- NOTE | 2018-12-31 18:08 | UC ---
FLU HPI - HPI Summary HPI Summary: Patient started experiencing flulike symptoms today with headache, body aches, mild fever and chills. It is notable that he did have a tick embedded in the left chest area 2 weeks ago however he thinks it was only on for several hours and he removed it without difficulty. - History of Current Complaint Chief Complaint: UCHeadathompson Stated Complaint: TICK BITE Time Seen by Provider: 12/31/18 17:47 Hx Obtained From: Patient Onset/Duration: Gradual Onset Severity Currently: Mild Severity Initially: Mild Pain Intensity: 5 Associated Signs & Symptoms: Positive: Fever - Patient had a tick embedded 2 weeks ago on his left chest which she removed easily and had only been on for a few hours., Myalgia, Headache - Allergy/Home Medications Allergies/Adverse Reactions: Allergies Allergy/AdvReac Type Severity Reaction Status Date / Time No Known Allergies Allergy Verified 12/31/18 17:53 Home Medications: Home Medications Lisinopril TAB* [Prinivil TAB 10 MG*] 10 mg PO DAILY 12/31/18 [History Confirmed 12/31/18] PMH/Surg Hx/FS Hx/Imm Hx Previously Healthy: Yes - Surgical History Surgical History: Yes Surgery Procedure, Year, and Place: TONSILLECTOMY. SEPTOPLASTY. LEFT MENISCUS REPAIR - Family History Known Family History: Positive: Hypertension - father - Social History Alcohol Use: Occasionally Substance Use Type: None Smoking Status (MU): Former Smoker Review of Systems All Other Systems Reviewed And Are Negative: Yes Skin: Positive: Other - Patient removed a tick from his left upper chest 2 weeks ago. It was not engorged and it was only on for a few hours. ENT: Positive: Nasal Discharge - States he always has some nasal congestion. Motor: Positive: Negative Neurovascular: Positive: Negative Musculoskeletal: Positive: Myalgia Neurological: Positive: Headache - Mild headache. Psychological: Positive: Negative Is Patient Immunocompromised?: No Physical Exam Triage Information Reviewed: Yes Appearance: Well-Appearing, No Pain Distress, Well-Nourished Vital Signs: Initial Vital Signs Temp 99.1 F 12/31/18 17:47 Pulse 102 12/31/18 17:47 Resp 18 12/31/18 17:47 Pulse Ox 99 12/31/18 17:47 Vital Signs Reviewed: Yes Eyes: Positive: Conjunctiva Clear ENT: Positive: Hearing grossly normal, Pharynx normal, TMs normal, Uvula midline Neck exam: Normal Neck: Positive: Supple, Nontender, No Lymphadenopathy Respiratory: Positive: Lungs clear, Normal breath sounds, No respiratory distress, No accessory muscle use Cardiovascular: Positive: RRR, No Murmur, Pulses Normal, Brisk Capillary Refill Musculoskeletal Exam: Normal Neurological Exam: Normal Psychological Exam: Normal Skin: Positive: Other - Where the tick was embedded in the left upper chest is completely healed and there are no other rashes on the body. Flu Course/Dx - Course Course Of Treatment: Patient has mild flulike symptoms today however he did have a tick embedded in his left upper chest 2 weeks ago which he removed. The ticket only been there for a few hours. Rapid flu test was: Negative. Lyme titers are drawn here. I' m going to treat the patient for Lyme disease presently with doxycycline twice a day for 3 weeks. If the laboratory report comes back negative then he can discontinue the doxycycline. - Differential Dx/Diagnosis Provider Diagnosis: Viral illness Discharge - Sign-Out/Discharge Documenting (check all that apply): Patient Departure All imaging exams completed and their final reports reviewed: No Studies - Discharge Plan Condition: Fair Disposition: HOME Prescriptions: DOXYcycline CAP(*) [DOXYcycline 100MG CAP(*)] 100 mg PO BID 21 Days #42 cap Patient Education Materials: Lyme Disease (ED) Forms: *Work Release Referrals: Aydin Ferris MD [Primary Care Provider] - Additional Instructions: Do not eat any dairy products, multivitamins or antacids 2 hours prior to taking doxycycline and 2 hours after taking doxycycline. However you do want to take it with food. We will call you with the Lyme titer results if they are negative you can stop the doxycycline if they are positive and continue it and follow-up with your primary care provider for further care. - Billing Disposition and Condition Condition: FAIR Disposition: Home
[2018-12-31 18:09] VITALS: BP 122/98
[2018-12-31 18:25] LABS: Influenza A Molecular NEGATIVE (Negative); Influenza B Molecular NEGATIVE (Negative)
== END 2018-12-31 18:46 | disposition home or self-care (01) ==
LOC: UCEAST 17:35
DX: B34.9 Viral infection, unspecified (principal); Z87.891 Personal history of nicotine dependence
CPT/HCPCS: 36415; 86618; 99212; G0463

== ENCOUNTER 2019-05-21 09:27 | Emergency (ER) | payer BC ==
--- OUTSIDE RECORDS SUMMARY | 2019-05-21 09:32 | XMS REPORT | Continuity of Care Document ---
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 Problems Active Problems Provider Date Essential hypertension TEJINDER Aggarwal Onset: 05/11/2019 Allergic rhinitis TEJINDER Aggarwal Onset: 05/11/2019 Allergic rhinitis due to pollen TEJINDER Aggarwal Onset: 2018 Social History Type Date Description Comments Sex Unknown Tobacco Use Start: Unknown End: Unknown Patient is a former smoker Smoking Status Reviewed: 05/11/19 Patient is a former smoker Allergies, Adverse Reactions, Alerts Description No Known Drug Allergies Medications Active Medications SIG Qnty Indications Ordering Provider Date Mometasone Furoate spray two 17gm J30.1 Hayes Jin 05/11/2019 sprays in each MD Gee 50mcg/Act Suspension nostril once daily. Levocetirizine take one 30tabs J30.1 Christopher A. 05/11/2019 Dihydrochloride tablet by MD Gee 5mg Tablets mouth daily at bedtime Lisinopril Take One Unknown 10mg Tablets Tablet By Mouth Every Day Concerta Unknown 27mg Tablets ER Immunizations Description No Information Available Vital Signs Date Vital Result Comment 05/11/2019 1:46pm BP Systolic 145 mmHg BP Diastolic 80 mmHg Height 79 inches 6'7" Weight 327.00 lb BMI (Body Mass Index) 36.8 kg/m2 Heart Rate 91 /min O2 % BldC Oximetry 95 % Results Test Date Facility Test Result H/L Range Note Total IgE 05/11/2019 [facility] .Total IgE <pending> [address] [place] [address] [phone] Order 05/11/2019 [facility] Blood Collection via < pending> Venipuncture Order 05/11/2019 [facility] Skin Test Seasonal < pending> and Environmental Procedures Date Code Description Status 05/11/2019 79960 Allergy Tests Percutaneous W/ Allergenic Extracts Completed Medical Devices Description No Information Available Encounters Description No Information Available Assessments Date Code Description Provider 05/11/2019 J30.1 Allergic rhinitis due to pollen AZAEL Aggarwal 05/11/2019 J30.89 Other allergic rhinitis TEJINDER Aggarwal Plan of Treatment 05/11/2019 - Dahiana Bhatia RPA-CJ30.1 Allergic rhinitis due to pollenNew Medication:Mometasone Furoate 50 mcg/Act - spray two sprays in each nostril once daily.Levocetirizine Dihydrochloride 5 mg - take one tablet by mouth daily at bedtimeComments:Patient with allergic rhinitis. I will screen for common seasonal and environmental allergies. I will check total IgE level. I will give Nasonex for daily prophylaxis of the nose. I will give Levocetirizine for breakthrough nasal symptoms.Follow up:2 weeks.J30.89 Other allergic rhinitis Functional Status Description No Information Available Mental Status Description No Information Available Referrals Description No Information Available
--- OUTSIDE RECORDS SUMMARY | 2019-05-21 09:32 | XMS REPORT | Continuity of Care Document ---
:1985 External Reference #:[id number] Author Name TEJINDER Aggarwal (transmitted by agent of provider Ying Lewis) Address [address] [place] [address] Care Team Providers Name Role Phone Referred By Friend Care Team Information Rn Physician Office Unavailable Aydin Ferris MD Care Team Information Rn Physician Office Unavailable Problems Active Problems Provider Date Essential hypertension TEJINDER Aggarwal Onset: 05/11/2019 Social History Type Date Description Comments Sex Unknown Tobacco Use Start: Unknown End: Unknown Patient is a former smoker Allergies, Adverse Reactions, Alerts Description No Known Drug Allergies Medications Active Medications SIG Qnty Indications Ordering Provider Date Lisinopril Take One Tablet Unknown 10mg Tablets By Mouth Every Day Concerta Unknown 27mg Tablets ER Cetirizine HCL take one tablet Unknown 10mg by mouth every Tablets day at bedtime Immunizations Description No Information Available Vital Signs Date Vital Result Comment 05/11/2019 1:46pm BP Systolic 145 mmHg BP Diastolic 80 mmHg Height 79 inches 6'7" Weight 327.00 lb BMI (Body Mass Index) 36.8 kg/m2 Heart Rate 91 /min O2 % BldC Oximetry 95 % Results Description No Information Available Procedures Description No Information Available Medical Devices Description No Information Available Encounters Description No Information Available Assessments Description No Information Available Plan of Treatment No Information Available Functional Status Description No Information Available Mental Status Description No Information Available Referrals Description No Information Available
--- OUTSIDE RECORDS SUMMARY | 2019-05-21 09:33 | XMS REPORT | Continuity of Care Document ---
:1985 External Reference #:[id number] Author Name Aydin Ferris MD Address [address] [place] [address] Care Team Providers Name Role Phone Aydin Ferris MD - Family Care Team Information Associate Professor Of History Medicine Hernán Rangel MD - Cardiovascular Care Team Information Associate Professor Of History [phone] Disease Problems Description No Information Available Social History Type Date Description Comments Sex Unknown ETOH Use Currently consumes alcohol Tobacco Use Start: Unknown End: Unknown Patient is a former smoker Smoking Status Reviewed: 03/20/18 Patient is a former smoker Allergies, Adverse Reactions, Alerts Description No Known Drug Allergies Medications Active Medications SIG Qnty Indications Ordering Date Provider Methylphenidate one by mouth in 30tabs Aydin Poole 04/26/2019 Hydrochloride ER am after a hearty MD [place] 27mg breakfast Tablets ER Lisinopril 1 by mouth every 30tabs I10 Aydin Poole 12/03/2018 10mg Tablets day MD [place] History Medications Vyvanse one po in Am after 30caps Aydin Poole 04/26/2019 - 20mg a hearty breakfast. MD [place] 04/26/2019 Capsules Immunizations Description No Information Available Vital Signs Date Vital Result Comment 04/26/2019 8:41am BP Systolic 130 mmHg BP Diastolic 80 mmHg Heart Rate 88 /min Body Temperature 98.1 F Respiratory Rate 12 /min Height 79 inches 6'7" Weight 335.00 lb BMI (Body Mass Index) 37.7 kg/m2 12/03/2018 3:35pm BP Systolic 158 mmHg BP Diastolic 88 mmHg Heart Rate 80 /min Body Temperature 98.8 F Respiratory Rate 18 /min Height 79 inches 6'7" Weight 341.00 lb BMI (Body Mass Index) 38.4 kg/m2 Results Test Date Facility Test Result H/L Range Note Laboratory test 12/31/2018 [facility] [place]yme Disease Negative Negative 1 finding Serology Rapid Influenza A & 12/31/2018 [facility] [place] Influenza A NEGATIVE Negative 2 B Molecular Molecular Influenza B Molecular NEGATIVE Negative Laboratory test finding 12/02/2018 [facility] [place] Lactic Acid 0.7 mmol/L Normal 0.5- 2.0 3 Troponin I 0.01 ng/mL <0.04 4 Comp Metabolic Panel 12/02/2018 [facility] [place] Sodium 137 mmol/L Normal 135-145 Potassium 4.0 mmol/L Normal 3.5-5.0 Chloride 106 mmol/L Normal 101-111 Co2 Carbon Dioxide 24 mmol/L Normal 22-32 Anion Gap 7 mmol/L Normal 2-11 Glucose 91 mg/dL Normal 70-100 Blood Urea Nitrogen 13 mg/dL Normal 6-24 Creatinine 0.73 mg/dL Normal 0.67-1.17 BUN/Creatinine Ratio 17.8 Normal 8-20 Calcium 9.8 mg/dL Normal 8.6-10.3 Total Protein 7.2 g/dL Normal 6.4-8.9 Albumin 4.4 g/dL Normal 3.2-5.2 Globulin 2.8 g/dL Normal 2-4 Albumin/Globulin Ratio 1.6 Normal 1-3 Total Bilirubin 0.90 mg/dL Normal 0.2-1.0 Alkaline Phosphatase 46 U/L Normal 34-104 Alt 50 U/L Normal 7-52 Ast 30 U/L Normal 13-39 Egfr Non- 125.3 >60 Egfr 151.6 >60 5 CBC Auto Diff 12/02/2018 [facility] [place] White Blood Count 6.1 10^3/uL Normal 3.5- 10.8 Red Blood Count 5.74 10^6/uL High 4.18-5.48 Hemoglobin 17.1 g/dL Normal 14.0-18.0 Hematocrit 49 % High 36-46 Mean Corpuscular Volume 86 fL Normal 80-94 Mean Corpuscular Hemoglobin 30 pg Normal 27-31 Mean Corpuscular HGB Conc 35 g/dL Normal 31-36 Red Cell Distribution Width 13 % Normal 10.5-15 Platelet Count 202 10^3/uL Normal 150-450 Mean Platelet Volume 8.7 fL Normal 7.4-10.4 Abs Neutrophils 2.8 10^3/uL Normal 1.5-7.7 Abs Lymphocytes 2.6 10^3/uL Normal 1.0-4.8 Abs Monocytes 0.6 10^3/uL Normal 0-0.8 Abs Eosinophils 0.1 10^3/uL Normal 0-0.6 Abs Basophils 0.1 10^3/uL Normal 0-0.2 Abs Nucleated RBC 0 10^3/uL Granulocyte % 45.6 % Lymphocyte % 42.3 % Monocyte % 9.1 % Eosinophil % 2.0 % Basophil % 1.0 % Nucleated Red Blood Cells % 0.4 CBC Auto Diff 11/27/2018 [facility] [place] White Blood Count 7.2 10^3/uL Normal 3.5- 10.8 Red Blood Count 5.83 10^6/uL High 4.18-5.48 Hemoglobin 17.5 g/dL Normal 14.0-18.0 Hematocrit 51 % High 36-46 Mean Corpuscular Volume 87 fL Normal 80-94 Mean Corpuscular Hemoglobin 30 pg Normal 27-31 Mean Corpuscular HGB Conc 35 g/dL Normal 31-36 Red Cell Distribution Width 13 % Normal 10.5-15 Platelet Count 201 10^3/uL Normal 150-450 Mean Platelet Volume 9.3 fL Normal 7.4-10.4 Abs Neutrophils 3.4 10^3/uL Normal 1.5-7.7 Abs Lymphocytes 3.0 10^3/uL Normal 1.0-4.8 Abs Monocytes 0.7 10^3/uL Normal 0-0.8 Abs Eosinophils 0.1 10^3/uL Normal 0-0.6 Abs Basophils 0 10^3/uL Normal 0-0.2 Abs Nucleated RBC 0 10^3/uL Granulocyte % 46.6 % Lymphocyte % 41.9 % Monocyte % 9.1 % Eosinophil % 1.9 % Basophil % 0.5 % Nucleated Red Blood Cells % 0.2 Comp Metabolic Panel 11/27/2018 [facility] [place] Sodium 139 mmol/L Normal 135-145 Potassium 4.1 mmol/L Normal 3.5-5.0 Chloride 106 mmol/L Normal 101-111 Co2 Carbon Dioxide 24 mmol/L Normal 22-32 Anion Gap 9 mmol/L Normal 2-11 Calcium 10.0 mg/dL Normal 8.6-10.3 Albumin 4.6 g/dL Normal 3.2-5.2 Total Bilirubin 0.60 mg/dL Normal 0.2-1.0 Glucose 84 mg/dL Normal 70-100 Blood Urea Nitrogen 14 mg/dL Normal 6-24 Creatinine 0.79 mg/dL Normal 0.67-1.17 BUN/Creatinine Ratio 17.7 Normal 8-20 Total Protein 7.1 g/dL Normal 6.4-8.9 Globulin 2.5 g/dL Normal 2-4 Albumin/Globulin Ratio 1.8 Normal 1-3 Alkaline Phosphatase 51 U/L Normal 34-104 Alt 57 U/L High 7-52 Ast 32 U/L Normal 13-39 Egfr Non- 114.4 >60 Egfr 138.4 >60 6 Laboratory test finding 11/27/2018 [facility] [place] Lipase 19 U/L Normal 11.0-82.0 7 Hepatitis Acute Panel 11/27/2018 [facility] [place] HCV Index 8.4 Index Hepatitis C Antibody Low Reactive Abnormal Nonreactive 8 Hepatitis B Surface Antigen Nonreactive Nonreactive Hepatitis B Core IgM Nonreactive Nonreactive Hepatitis A AB IgM Nonreactive Nonreactive Laboratory test 11/27/2018 [facility] [place] Hepatitis C Rna Undetected IU/mL Undetected 9 finding Quant Poc Urinalysis 11/27/2018 [facility] [place] Poc Glucose, Urine Negative Negative Poc Bilirubin, Urine Negative Negative Poc Ketone, Urine Negative Negative Poc Specific [place], Urine >= 1.030 Normal 1.010-1.030 Poc Blood, Urine Trace-lysed Abnormal Negative Poc pH, Urine 5.5 Normal 5-9 Poc Protein, Urine 2+ Abnormal Negative Poc Urobilinogen, Urine 0.2 Negative Poc Nitrite, Urine Negative Negative Poc Leukocytes, Urine Negative Negative Poc Color, Urine Dark yellow Poc Clarity, Urine Clear 10 1 No evidence of antibodies to B. burgdorferi detected. False negative results may occur in recently infected patients (<=2 weeks) due to low or undetectable antibody levels to B. burgdorferi. If recent exposure is suspected, a second sample should be collected and tested in 2-4 weeks. Test Performed by: [facility] [address] [place] [address] 2 Studio Designer: [id number] [facility] Severe Sepsis and Septic Shock Management Bundle Measure requires all lactic acids initially measuring >2.0 mmol/L be repeated. 4 Troponin-I testing on Plasma Separator Tubes (PST) has a known false positive rate of 0.20-0.40%. All positive troponins reflex immediate secondary confirmatory testing. 5 Because ethnic data is not always readily [...] 15-29 5 Kidney failure <15 (or dialysis) 6 Because ethnic data is not always readily [...] 15-29 5 Kidney failure <15 (or dialysis) 7 [id number] Low reactive results are indeterminate. This sample has been reflexed for additional testing. 9 Result in log IU/mL is Undetected. ADDITIONAL INFORMATION The quantification range of this assay is 15 to 100,000,000 IU/mL (1.18 log to 8.00 log IU/mL). Testing was performed using the stone HCV test ([employer] with the stone [place] Purification0 System. Test Performed by: [address] [address] 10 Studio Designer: [id number] Procedures Description No Information Available Medical Devices Description No Information Available Encounters Type Date Location Provider Dx Diagnosis Office Visit 12/03/2018 [facility] Aydin Poole I1Juan Essential (primary) 3:40p MD [place] hypertension R07.89 Other chest pain Assessments Date Code Description Provider 04/26/2019 F90.0 Attention-deficit hyperactivity disorder, Aydin Ferris MD predominantly inattentive type 04/26/2019 Z30.09 Encounter for other general counseling and Aydin Ferris MD advice on contraception 12/03/2018 I10 Essential (primary) hypertension Aydin Ferris MD 12/03/2018 R07.89 Other chest pain Aydin Ferris MD Plan of Treatment Future Appointment(s):05/31/2019 8:30 am - Aydin Ferris MD at [facility]04/26/2019 - Aydin Ferris MDF90.0 Attention-deficit hyperactivity disorder, predominantly inattentive typeFollow up:one oubohJ36.09 Encounter for other general counseling and advice on contraceptionAllNew Medication:Methylphenidate Hydrochloride ER 27 mg - one by mouth in am after a hearty breakfastVyvanse 20 mg - one po in Am after a hearty breakfast.Comments: Medication Management Patient Understands medications he's taking? Yes No Are there Barriersto Adherence? Yes No Has the patient been asked about herbal supplements and therapies, and OTC meds? Yes No Functional Status Description No Information Available Mental Status Description No Information Available Referrals Refer to Reason for Referral Status Appt Date Hernán Rangel MD Treadmill Stress Test jw Scheduled 12/23/[address] [place] [address] [phone]
--- NOTE | 2019-05-21 10:24 | UC ---
Complaint Male HPI - HPI Summary HPI Summary: 34-year-old male who started having some right testicular discomfort yesterday where he felt like he "had to readjust frequently". He states today at work he noted more discomfort and when he view the area of the right testicle was harder and more swollen than the left. He denies any penile discharge. He is sexually active with one person. States approximate 1 week ago he had fever and chills and then last night took Tylenol because he felt feverish. - History of Current Complaint Chief Complaint: UCGeneralIllness Stated Complaint: PERSONAL Time Seen by Provider: 05/21/19 10:10 Hx Obtained From: Patient Onset/Duration: Gradual Onset Timing: Constant Severity Initially: Mild Severity Currently: Mild Pain Intensity: 3 Aggravating Factor(s): Nothing Alleviating Factor(s): Other - Readjustment. Associated Signs And Symptoms: Positive: Fever - Patient states he took Tylenol last evening because he felt feverish., Constipation - Patient states he's been constipated for the past couple of days.. Negative: Penile Swelling, Penile Discharge - Allergies/Home Medications Allergies/Adverse Reactions: Allergies Allergy/AdvReac Type Severity Reaction Status Date / Time No Known Allergies Allergy Verified 05/21/19 09:48 PMH/Surg Hx/FS Hx/Imm Hx Previously Healthy: Yes - Surgical History Surgical History: Yes Surgery Procedure, Year, and Place: TONSILLECTOMY. SEPTOPLASTY. LEFT MENISCUS REPAIR - Family History Known Family History: Positive: Hypertension - father - Social History Occupation: Employed Full-time Lives: With Family Alcohol Use: Occasionally Substance Use Type: None Smoking Status (MU): Former Smoker Review of Systems All Other Systems Reviewed And Are Negative: Yes Constitutional: Positive: Fever - Patient felt feverish approximate 1 week ago and then states he felt feverish last evening so he took some Tylenol. No other symptoms of illness. Genitourinary: Positive: Negative, Other - Right testicle was noted to be larger than the other this morning and patient thinks it feels harder. Denies any penile discharge. Is Patient Immunocompromised?: No Physical Exam Triage Information Reviewed: Yes Appearance: Well-Appearing, No Pain Distress, Well-Nourished Vital Signs: Initial Vital Signs Temp 99.5 F 05/21/19 09:32 Pulse 95 05/21/19 09:32 Resp 16 05/21/19 09:32 Pulse Ox 100 05/21/19 09:32 Vital Signs Reviewed: Yes Respiratory: Positive: Lungs clear, Normal breath sounds, No respiratory distress, No accessory muscle use Cardiovascular: Positive: RRR, No Murmur, Pulses Normal, Brisk Capillary Refill Abdomen Description: Positive: Nontender, No Organomegaly, Soft. Negative: CVA Tenderness (R), CVA Tenderness (L) Bowel Sounds: Positive: Present Male Genital Exam: Positive: Other - The right testicle is larger than the left. Patient states he has more discomfort in the right inguinal area and none on palpation of the testicles.. Negative: Epididymal Tenderness, Erythema , Scrotum Tenderness (R), Scrotum Tenderness (L), Testicular Tenderness (R), Testicular Tenderness (L), Urethral Discharge Musculoskeletal Exam: Normal Neurological Exam: Normal Psychological Exam: Normal Skin Exam: Normal Complaint Male Course/Dx - Course Course Of Treatment: Testicular Ultrasound: FINDINGS: The right testicle appears slightly enlarged measuring 6.5 x 3.8 x 4.7 cm. The left testicle measured 5.8 x 3.9 x 3.8 cm. The testicles are normal in shape and echogenicity without significant focal abnormality. No intratesticular mass is seen. There is vascular flow in both testicles with increased vascular flow and hyperemia in the right testicle. The epididymides appear to be within normal limits. No hydrocele is seen. Adjacent to the superior portion of the right testicle there is an area of increased echogenicity possibly representing a hernia. This did not change with Valsalva maneuver. IMPRESSION: 1. MILDLY ENLARGED RIGHT TESTICLE WITH INCREASED BLOOD FLOW SUGGESTING THE POSSIBILITY OF ORCHITIS. RECOMMEND CLINICAL CORRELATION. 2. POSSIBLE RIGHT INGUINAL HERNIA. The nurse was able to talk with the patient privately and he is only sexually active with 1 partner that being his . She was so able to speak with the and she is only sexually active with her . After discussion with Dr. Dunn, I'm going to treat the patient with Levaquin 500 milligrams daily for 10 days. He is to follow-up with the urologist before the prescription is finished and sooner if no improvement by Friday. If any symptoms worsen over the weekend he is to go to the emergency room for further treatment. The patient is agreeable to this plan of action. - Differential Dx/Diagnosis Provider Diagnosis: Orchitis Discharge ED - Sign-Out/Discharge Documenting (check all that apply): Patient Departure All imaging exams completed and their final reports reviewed: Yes - Discharge Plan Condition: Fair Disposition: HOME Prescriptions: Levofloxacin TAB* [Levaquin TAB*] 500 mg PO DAILY 10 Days #10 tab Patient Education Materials: Orchitis (ED) Forms: *Work Release Referrals: Aydin Ferris MD [Primary Care Provider] - Nilay Walter MD [Medical Doctor] - Additional Instructions: Ibuprofen 600 mg every 8 hours over the next few days. Inflammation and pain. Apply ice to the area. No intercourse until cleared. Definite follow-up with a urologist if no improvement by Friday but definite follow-up before the prescription is complete. - Billing Disposition and Condition Condition: FAIR Disposition: Home
[2019-05-24 12:22] LABS: Chlamydia trachomatis NAA Negative (Negative); Neisseria gonorrhoeae (GC) NAA Negative (Negative)
== END 2019-05-21 11:12 | disposition home or self-care (01) ==
LOC: UCEAST 09:27
DX: N45.2 Orchitis (principal); Z87.891 Personal history of nicotine dependence
CPT/HCPCS: 76870; 81003; 87491; 87591; 99202; G0463